=== PATIENT | female | born 1990 ===

== ENCOUNTER 2023-05-24 13:30 | Inpatient (IN) | payer OTHER ==
[~2023-05-24] VITALS: Ht 170.2 cm; Wt 82.1 kg
[2023-06-08] MEDS ORDERED: OXYTOCIN 500 ML IV ONE (08:15)
[2023-06-08 09:39] LABS: HEMATOCRIT 35.3 % (36.0-45.00); HEMOGLOBIN 11.8 g/dL (12.0-15.00); MEAN CELL VOLUME 78.5 fL (80.00-100.00); MEAN CORPUSCULAR HEMOGLOBIN 26.4 pg (27.00-32.0); MEAN CORPUSCULAR HGB CONC 33.6 g/dl (32.0-36.0); PLATELET COUNT 165 K/uL (150-450); RED CELL DISTRIBUTION WIDTH 16.6 % (11.5-14.5)
[2023-06-08] MEDS ORDERED: OBSTETRIX ONE1 EAC1 (10:01)
[2023-06-08 10:02] LABS: INR 1.01; PARTIAL THROMBOPLASTIN TIME 23.8 SECONDS (22.0-34.0); PROTHROMBIN TIME 10.6 SECONDS (9.0-11.5)
[2023-06-08] MEDS ORDERED: OBSTETRIX ONE CAPSUL (10:02)
[2023-06-08 10:06] LABS: ALBUMIN 2.8 gm/dL (3.4-5.0); BILIRUBIN TOTAL 0.37 mg/dL (0.3-1.2); CALCIUM 8.6 mg/dL (8.5-10.1); CREATININE SERUM 0.6 mg/dL (0.55-1.02); GFR 115.13; POTASSIUM 3.92 mEq/L (3.5-5.1); TOTAL PROTEIN 6.8 gm/dL (6.4-8.2)
[2023-06-08] MEDS ORDERED: RINGERS SOLUTION,LACTATED 1,000 ML IV SCH (11:15)
[2023-06-08] MEDS ORDERED: MORPHINE SULFATE 4 MG/ML CARTRIDGE IV SCH (14:02)
[2023-06-08] MEDS ORDERED: IBUprofen 600 MG TABLET PO PRN (18:00)
[2023-06-08] MEDS ORDERED: CHLORHEXIDINE GLUCONATE 120 ML BOTTLE TOP SCH (18:00)
[2023-06-08] MEDS ORDERED: OXYTOCIN 1,000 ML IV ONE (18:00)
[2023-06-08] MEDS ORDERED: LIDOCAINE HCL 1% 200MG/20ML VIAL IJ SCH (18:00)
[2023-06-08] MEDS ORDERED: ERYTHROMYCIN BASE 1 GM TUBE OP SCH (18:00)
[2023-06-08] MEDS ORDERED: METHYLERGONOVINE MALEATE 0.2 MG/ML AMPUL ONE (19:24)
[2023-06-08] MEDS ORDERED: METHYLERGONOVINE MALEATE 0.2 MG/ML AMPUL IM ONE (19:30)
[2023-06-08] MEDS ORDERED: SENNA/DOCUSATE SODIUM 1 TAB TABLET PO SCH (21:00)
[2023-06-09 08:06] LABS: HEMATOCRIT 34.8 % (36.0-45.00); HEMOGLOBIN 11.6 g/dL (12.0-15.00); MEAN CELL VOLUME 78.4 fL (80.00-100.00); MEAN CORPUSCULAR HEMOGLOBIN 26.1 pg (27.00-32.0); MEAN CORPUSCULAR HGB CONC 33.3 g/dl (32.0-36.0); PLATELET COUNT 180 K/uL (150-450); RED BLOOD COUNT 4.44 M/uL (4.00-6.00); RED CELL DISTRIBUTION WIDTH 16.4 % (11.5-14.5)
[2023-06-09] MEDS ORDERED: ACETAMINOPHEN 500 MG GEL..CAP PO PRN (08:30)
[2023-06-09] MEDS ORDERED: PNV,CALCIUM 72/IRON/FOLIC ACID 1 TAB TABLET PO SCH (09:00)
== END 2023-06-10 17:35 | disposition home or self-care (01) | DRG 807 ==
LOC: OB/GYN 06-03 13:30 → LDR 06-08 07:48 → OB/GYN 06-08 18:00
PROVIDERS: Obstetrics & Gynecology Gynecology; ADMIT Obstetrics & Gynecology Maternal & Fetal Medicine; ATTEND Obstetrics & Gynecology Maternal & Fetal Medicine
PROC: 10E0XZZ Delivery of Products of Conception, External Approach (ICD-10-PCS; principal; 2023-06-08)
PROC: 0KQM0ZZ Repair Perineum Muscle, Open Approach (ICD-10-PCS; 2023-06-08)
PROC: 4A1HXCZ Monitoring of Products of Conception, Cardiac Rate, External Approach (ICD-10-PCS; 2023-06-08)
DX: O70.1 Second degree perineal laceration during delivery (principal); O48.0 Post-term pregnancy; Z37.0 Single live birth; Z3A.42 42 weeks gestation of pregnancy; Z20.822 Contact with and (suspected) exposure to COVID-19

== ENCOUNTER 2023-05-31 12:49 | Outpatient (CLI) | payer OTHER | END 2023-05-31 13:33 | disposition home or self-care (01) | LOC: NST 12:49 | PROVIDERS: ATTEND Obstetrics & Gynecology | DX: Z34.83 Encounter for supervision of other normal pregnancy, third trimester (principal) ==